=== PATIENT | male | born 1990 | race African-American/Black ===

== ENCOUNTER 2021-03-04 13:01 | Emergency (ER) | payer MEDICAID ==
[~2021-03-04] VITALS: Ht 175.3 cm; Wt 83.0 kg
[2021-03-04] MEDS ORDERED: IBUPROFEN 600MG TABLET PO STA (13:44)
[2021-03-04] MEDS ORDERED: NAPR-681 PO (15:01)
[2021-03-04 15:37] VITALS: BP 126/70
== END 2021-03-04 15:38 | disposition home or self-care (01) ==
LOC: ER 13:01
DX: M25.552 Pain in left hip (principal); M54.42 Lumbago with sciatica, left side; V03.19XA Pedestrian with other conveyance injured in collision with car, pick-up truck or van in traffic accident, initial encounter; Y93.89 Activity, other specified; Y92.89 Other specified places as the place of occurrence of the external cause; Y99.8 Other external cause status
CPT/HCPCS: 72100; 73502; 99284